=== PATIENT | female | born 1960 | race Caucasian/White ===

== ENCOUNTER 2017-11-15 15:20 | Emergency (ER) | payer OTHER ==
[~2017-11-15] VITALS: Ht 170.2 cm; Wt 85.4 kg
[~2017-11-15 15:20] MED LIST: 24HOUR ALLERGY10 MG PO; ADIPEX-P37.5 M1 PO; BACTRIM,SEPT1 TABLET PO; CELEBREX200 MG PO; CLONAZEPAM0.5 MG PO; ERGOCALCIF50000 UNIT PO; GEMFIBROZIL600 MG PO; LEXAPRO20 MG PO; LISINOPRIL40 MG PO; LYRICA50 MG PO; OMEPRAZOLE20 M2 PO; PERCOCET 10/1 TABLET PO; VANCOMYCIN HCL125 MG PO
[2017-11-15 15:27] VITALS: BP 158/80
[2017-11-15 16:14] LABS: BASOPHIL (%) 1.1 % (0-1); BASOPHIL COUNT 0.1 K/uL (0-0.1); EOSINOPHIL (%) 2.2 % (0-5); EOSINOPHIL COUNT 0.1 K/uL (0-0.3); IMMATURE GRANULOCYTE (%) 0.2 % (0.0-0.7); LYMPHOCYTE (%) 38.9 % (15-42); LYMPHOCYTE COUNT 2.1 K/uL (1.0-2.8); MCH 28.3 PG (29.0-34.0); MCHC 33.3 G/DL (30.0-36.0); MCV 84.8 FL (83-99); MONOCYTE (%) 8.2 % (3-12); MONOCYTE COUNT 0.5 K/uL (0-0.8); NEUTROPHIL (%) 49.4 % (45-76); NEUTROPHIL COUNT 2.7 K/uL (1.8-6.4); PLATELET COUNT 209 K/uL (156-360); RBC DIS.WIDTH-CV 12.5 % (11.8-14.6); RBC DIS.WIDTH-SD 38.2 % (39-53); WHITE BLOOD COUNT 5.5 K/uL (4.1-10.2)
[2017-11-15 16:23] LABS: ALBUMIN 4.1 g/dL (3.2-4.8); CHLORIDE 107 mEq/L (99-109); SODIUM 138 mEq/L (136-147)
[2017-11-15 16:25] LABS: GLUCOSE 141 mg/dL (70-99); TOTAL PROTEIN 6.8 g/dL (6.4-8.3)
[2017-11-15 16:27] LABS: TOTAL BILIRUBIN 0.3 mg/dL (0.0-1.0)
[2017-11-15 16:28] LABS: ALKALINE PHOSPHATASE 60 IU/L (3-129); PHOSPHORUS 3.5 mg/dL (2.5-4.9)
[2017-11-15 16:29] LABS: CREATININE 0.8 mg/dL (0.6-1.3); GFR ESTIMATE (CALCULATED) > 59 mL/min/
[2017-11-15 16:30] LABS: AST (GOT) 27 IU/L (2-34); DIRECT BILIRUBIN 0.1 mg/dL (0.0-0.3); UREA NITROGEN (BUN) 13 mg/dL (9-23)
[2017-11-15 16:32] LABS: ALT (GPT) 43 IU/L (3-49)
[2017-11-15] MEDS ORDERED: VENTOLIN HFA18 GM IH (16:58)
[2017-11-16 10:39] LABS: ANTI-HEPATITIS B CORE (TOTAL) Nonreactive; HEPATITIS B SURFACE ANTIGEN Nonreactive
[2017-11-16 10:40] LABS: HEPATITIS B SURFACE ANTIBODY Nonreactive; HEPATITIS C ANTIBODY Nonreactive; HIV-1/2 AB/AG COMBO Nonreactive
== END 2017-11-15 17:45 | disposition home or self-care (01) ==
LOC: EME 15:20
PROVIDERS: Nurse Practitioner Family
DX: S61.431A Puncture wound without foreign body of right hand, initial encounter (principal); W46.1XXA Contact with contaminated hypodermic needle, initial encounter; J06.9 Acute upper respiratory infection, unspecified; M79.7 Fibromyalgia
CPT/HCPCS: 71046; 80053; 82248; 84100; 85025; 86703; 86704; 86706; 86803; 87340; 94640; 99281; 99284